=== PATIENT | male | born 1935 | race Caucasian/White ===

== ENCOUNTER → 2020-10-09 08:22 | Outpatient (CLI) | payer MEDICARE, OTHER, SELFPAY ==
[2020-10-09 19:26] LABS: Alanine Aminotransferase 25 IU/L (<50); Albumin 3.9 g/dL (3.5-5.0); Albumin Globulin Ratio 1.3 (1.0-2.8); Alkaline Phosphatase 52 U/L (38-126); Aspartate Aminotransferase 17 IU/L (17-59); Bilirubin Total 0.7 mg/dL (0.2-1.3); Blood Urea Nitrogen 16 mg/dL (9-20); Calcium 9.9 mg/dL (8.4-10.2); Carbon Dioxide 28 mmol/L (22-32); Chloride 103 mmol/L (98-107); Estimated Glomerular Filt Rate > 60.0 mL/min (>60); Globulin 2.9 g/dL (1.7-4.1); Glucose 104 mg/dL (80-110); HEMOLYSIS < 15 (0-50); Potassium 4.6 mmol/L (3.4-5.1); Sodium 137 mmol/L (137-145); Total Protein 6.8 g/dL (6.3-8.2)
[2020-10-09 19:33] LABS: Add Manual Diff / Slide Review NO; Basophils Absolute Auto 0 /uL (0-100); Basophils Percent Auto 0.5 % (0-2); Eosinophils Absolute Auto 100 /uL (0-450); Eosinophils Percent Auto 0.7 % (2-4); Hematocrit 45.8 % (41-53); Hemoglobin 15.3 g/dL (13.5-17.5); Lymphocytes Absolute Auto 2300 /uL (1100-4500); Lymphocytes Percent Auto 21.8 % (25-40); Mean Corpuscular HGB Conc 33.5 % (30-36); Mean Corpuscular Hemoglobin 31.1 PG (26-34); Mean Corpuscular Volume 92.8 fL (80-100); Monocytes Absolute Auto 900 /uL (0-900); Monocytes Percent Auto 8.8 % (3-14); Neutrophils Absolute Auto 7200 /uL (1500-7000); Neutrophils Percent Auto 68.2 % (50-75); Platelet Count 245 X10^3/uL (150-400); Red Blood Cell Count 4.93 X10^6/uL (4.5-5.9); Red Cell Distribution Width 13.5 % (11.6-14.8); White Blood Cell Count 10.5 X10^3/uL (4.5-11.0)
[2020-10-09 19:54] LABS: Prostate Specific Antigen 1.54 ng/mL (0.10-4.00)
[2020-10-16 05:34] LABS: Percent Free Testosterone 3.18 % (1.50-4.20); Testosterone Free 20.45 ng/dL (5.00-21.00); Testosterone Total 643.1 ng/dL (264.0-916.0)
== END ==
PROVIDERS: Family Provider Family Medicine; PCP Family Medicine; Visit Provider Family Medicine
DX: E29.1 Testicular hypofunction (principal); N40.0 Benign prostatic hyperplasia without lower urinary tract symptoms
CPT/HCPCS: 80053; 84153; 84402; 84403; 85025

== ENCOUNTER → 2021-01-14 08:38 | Outpatient (CLI) | payer MEDICARE, OTHER, SELFPAY ==
[2021-01-14 19:49] LABS: Testosterone 190 ng/dL (71.8-623)
[2021-01-16 10:36] LABS: PSA Free % 32.2 % (.); PSA, Total 0.9 ng/mL (0.0-4.0)
== END ==
PROVIDERS: Family Provider Family Medicine; PCP Family Medicine; Referring Provider Student in an Organized Health Care Education/Training Program; Visit Provider Student in an Organized Health Care Education/Training Program
DX: E29.1 Testicular hypofunction (principal); Z51.81 Encounter for therapeutic drug level monitoring
CPT/HCPCS: 84153; 84154; 84403

== ENCOUNTER → 2021-01-30 11:56 | Outpatient (CLI) | payer MEDICARE, OTHER, SELFPAY ==
[2021-01-30 18:43] LABS: Add Manual Diff / Slide Review NO; Basophils Absolute Auto 100 /uL (0-100); Basophils Percent Auto 0.8 % (0-2); Eosinophils Absolute Auto 0 /uL (0-450); Eosinophils Percent Auto 0.3 % (2-4); Hematocrit 44.9 % (41-53); Hemoglobin 15.2 g/dL (13.5-17.5); Lymphocytes Absolute Auto 2200 /uL (1100-4500); Lymphocytes Percent Auto 19.1 % (25-40); Mean Corpuscular HGB Conc 33.8 % (30-36); Mean Corpuscular Hemoglobin 31.4 PG (26-34); Mean Corpuscular Volume 92.7 fL (80-100); Monocytes Absolute Auto 1100 /uL (0-900); Monocytes Percent Auto 9.4 % (3-14); Neutrophils Absolute Auto 8000 /uL (1500-7000); Neutrophils Percent Auto 70.4 % (50-75); Platelet Count 251 X10^3/uL (150-400); Red Blood Cell Count 4.85 X10^6/uL (4.5-5.9); Red Cell Distribution Width 13.5 % (11.6-14.8); White Blood Cell Count 11.4 X10^3/uL (4.5-11.0)
[2021-01-30 18:53] LABS: HEMOLYSIS < 15 (0-50); Iron 114 ug/dL (49-181)
[2021-01-30 19:01] LABS: Alanine Aminotransferase 22 IU/L (<50); Albumin 4.3 g/dL (3.5-5.0); Albumin Globulin Ratio 1.5 (1.0-2.8); Alkaline Phosphatase 53 U/L (38-126); Aspartate Aminotransferase 17 IU/L (17-59); BUN Creatinine Ratio 23.3 (6-22); Bilirubin Total 0.6 mg/dL (0.2-1.3); Blood Urea Nitrogen 21 mg/dL (9-20); Carbon Dioxide 28 mmol/L (22-32); Chloride 102 mmol/L (98-107); Estimated Glomerular Filt Rate > 60.0 mL/min (>60); Globulin 2.9 g/dL (1.7-4.1); Glucose 101 mg/dL (80-110); HEMOLYSIS < 15 (0-50); Potassium 4.9 mmol/L (3.4-5.1); Sodium 138 mmol/L (137-145); Total Protein 7.2 g/dL (6.3-8.2)
[2021-01-30 19:04] LABS: Percent Iron Saturation 36 % (20-50); Total Iron Binding Capacity 316 ug/dL (261-462); Transferrin 232 mg/dL (206-381)
[2021-01-30 19:53] LABS: Vitamin B12 > 1000 pg/mL (239-931)
[2021-02-02 17:09] LABS: Arsenic 1 ug/L (2-23); Cadmium, Blood None Detected ug/L (0.0-1.2); Lead, Blood 1 ug/dL (0-4)
== END ==
PROVIDERS: Family Provider Family Medicine; PCP Family Medicine; Visit Provider Family Medicine
DX: E29.1 Testicular hypofunction (principal); N18.9 Chronic kidney disease, unspecified; G62.9 Polyneuropathy, unspecified; D64.9 Anemia, unspecified
CPT/HCPCS: 80053; 82175; 82300; 82607; 83540; 83550; 83655; 83825; 85025

== ENCOUNTER → 2021-02-06 08:05 | Outpatient (CLI) | payer MEDICARE, OTHER, SELFPAY ==
[2021-02-06 20:31] LABS: Testosterone 605 ng/dL (71.8-623)
== END ==
PROVIDERS: Student in an Organized Health Care Education/Training Program; Family Provider Family Medicine; PCP Family Medicine
DX: E29.1 Testicular hypofunction (principal)
CPT/HCPCS: 84403

== ENCOUNTER → 2021-05-15 08:07 | Outpatient (CLI) | payer MEDICARE, OTHER, SELFPAY ==
[2021-05-15 18:22] LABS: Add Manual Diff / Slide Review NO; Basophils Absolute Auto 100 /uL (0-100); Basophils Percent Auto 0.9 % (0-2); Eosinophils Absolute Auto 100 /uL (0-450); Eosinophils Percent Auto 1.1 % (2-4); Hematocrit 42.4 % (41-53); Hemoglobin 14.4 g/dL (13.5-17.5); Lymphocytes Absolute Auto 2300 /uL (1100-4500); Lymphocytes Percent Auto 25.5 % (25-40); Mean Corpuscular HGB Conc 33.8 % (30-36); Mean Corpuscular Hemoglobin 31.1 PG (26-34); Mean Corpuscular Volume 91.8 fL (80-100); Monocytes Absolute Auto 1000 /uL (0-900); Monocytes Percent Auto 11.1 % (3-14); Neutrophils Absolute Auto 5600 /uL (1500-7000); Neutrophils Percent Auto 61.4 % (50-75); Platelet Count 231 X10^3/uL (150-400); Red Blood Cell Count 4.62 X10^6/uL (4.5-5.9); Red Cell Distribution Width 14.1 % (11.6-14.8)
[2021-05-15 18:31] LABS: Alanine Aminotransferase 20 IU/L (<50); Albumin 3.9 g/dL (3.5-5.0); Albumin Globulin Ratio 1.4 (1.0-2.8); Alkaline Phosphatase 45 U/L (38-126); Aspartate Aminotransferase 16 IU/L (17-59); BUN Creatinine Ratio 19.8 (6-22); Bilirubin Total 0.6 mg/dL (0.2-1.3); Blood Urea Nitrogen 19 mg/dL (9-20); Calcium 9.3 mg/dL (8.4-10.2); Carbon Dioxide 29 mmol/L (22-32); Chloride 105 mmol/L (98-107); Estimated Glomerular Filt Rate > 60.0 mL/min (>60); Globulin 2.7 g/dL (1.7-4.1); Glucose 120 mg/dL (80-110); HEMOLYSIS < 15 (0-50); Potassium 4.8 mmol/L (3.4-5.1); Sodium 138 mmol/L (137-145); Total Protein 6.6 g/dL (6.3-8.2)
== END ==
PROVIDERS: Family Provider Family Medicine; PCP Family Medicine; Visit Provider Family Medicine
DX: J01.00 Acute maxillary sinusitis, unspecified (principal); G62.9 Polyneuropathy, unspecified; N40.0 Benign prostatic hyperplasia without lower urinary tract symptoms
CPT/HCPCS: 80053; 85025

== ENCOUNTER → 2021-08-07 08:03 | Outpatient (CLI) | payer MEDICARE, OTHER, SELFPAY ==
[2021-08-07 19:10] LABS: Alanine Aminotransferase 21 IU/L (<50); Albumin 4.2 g/dL (3.5-5.0); Albumin Globulin Ratio 1.4 (1.0-2.8); Alkaline Phosphatase 55 U/L (38-126); Aspartate Aminotransferase 16 IU/L (17-59); Bilirubin Total 0.8 mg/dL (0.2-1.3); Blood Urea Nitrogen 23 mg/dL (9-20); Calcium 9.1 mg/dL (8.4-10.2); Carbon Dioxide 30 mmol/L (22-32); Chloride 102 mmol/L (98-107); Estimated Glomerular Filt Rate > 60 mL/min (>60); Globulin 3.1 g/dL (1.7-4.1); Glucose 102 mg/dL (80-110); HEMOLYSIS < 15 (0-50); Potassium 4.4 mmol/L (3.4-5.1); Sodium 139 mmol/L (137-145); Total Protein 7.3 g/dL (6.3-8.2)
[2021-08-07 20:20] LABS: Hemoglobin A1C% w Est Avg Glu 5.9 % (4.0-6.0)
[2021-08-15 11:24] LABS: Percent Free Testosterone 2.58 % (1.50-4.20); Testosterone Free 17.15 ng/dL (5.00-21.00); Testosterone Total 664.9 ng/dL (264.0-916.0)
== END ==
PROVIDERS: Family Provider Family Medicine; PCP Family Medicine; Visit Provider Family Medicine
DX: R73.03 Prediabetes (principal); Z79.890 Hormone replacement therapy
CPT/HCPCS: 80053; 83036; 84402; 84403

== ENCOUNTER → 2021-08-26 11:43 | Outpatient (CLI) | payer MEDICARE, OTHER, SELFPAY ==
[2021-08-26 19:55] LABS: Prostate Specific Antigen 0.878 ng/mL (0.10-4.00)
== END ==
PROVIDERS: Family Provider Family Medicine; PCP Family Medicine; Visit Provider Urology
DX: N13.8 Other obstructive and reflux uropathy (principal); N40.1 Benign prostatic hyperplasia with lower urinary tract symptoms
CPT/HCPCS: 84153

== ENCOUNTER → 2021-11-09 14:24 | Outpatient (CLI) | payer MEDICARE, OTHER, SELFPAY | PROVIDERS: Family Provider Family Medicine; PCP Family Medicine; Visit Provider Urology | DX: N39.0 Urinary tract infection, site not specified (principal) | CPT/HCPCS: 87086 ==

== ENCOUNTER → 2021-12-10 09:27 | Outpatient (CLI) | payer MEDICARE, OTHER, SELFPAY ==
[2021-12-10 19:52] LABS: Add Manual Diff / Slide Review NO; Basophils Absolute Auto 100 /uL (0-100); Basophils Percent Auto 0.9 % (0-2); Eosinophils Absolute Auto 100 /uL (0-450); Eosinophils Percent Auto 0.7 % (2-4); Hematocrit 42.6 % (41-53); Hemoglobin 14.5 g/dL (13.5-17.5); Lymphocytes Absolute Auto 1800 /uL (1100-4500); Lymphocytes Percent Auto 21.3 % (25-40); Mean Corpuscular HGB Conc 34.1 % (30-36); Mean Corpuscular Volume 90.7 fL (80-100); Monocytes Absolute Auto 800 /uL (0-900); Neutrophils Absolute Auto 5600 /uL (1500-7000); Neutrophils Percent Auto 67.1 % (50-75); Platelet Count 232 X10^3/uL (150-400); Red Blood Cell Count 4.69 X10^6/uL (4.5-5.9); Red Cell Distribution Width 13.4 % (11.6-14.8); White Blood Cell Count 8.3 X10^3/uL (4.5-11.0)
[2021-12-10 20:14] LABS: Prostate Specific Antigen Scrn 2.03 ng/mL (0.1-4.0)
[2021-12-22 09:36] LABS: Percent Free Testosterone 2.11 % (1.50-4.20); Testosterone Free 14.24 ng/dL (5.00-21.00); Testosterone Total 674.7 ng/dL (264.0-916.0)
== END ==
PROVIDERS: Family Provider Family Medicine; PCP Family Medicine; Visit Provider Family Medicine
DX: R73.03 Prediabetes (principal); Z12.5 Encounter for screening for malignant neoplasm of prostate; N13.8 Other obstructive and reflux uropathy; N40.1 Benign prostatic hyperplasia with lower urinary tract symptoms; Z79.890 Hormone replacement therapy; Z87.438 Personal history of other diseases of male genital organs
CPT/HCPCS: 84402; 84403; 85025; G0103

== ENCOUNTER → 2022-04-15 12:59 | Outpatient (CLI) | payer MEDICARE, OTHER, SELFPAY ==
[2022-04-15 19:18] LABS: Hemoglobin 14.6 g/dL (13.5-17.5); Mean Corpuscular HGB Conc 33.9 % (30-36); Mean Corpuscular Hemoglobin 30.8 PG (26-34); Mean Corpuscular Volume 90.8 fL (80-100); Platelet Count 246 X10^3/uL (150-400); Red Blood Cell Count 4.73 X10^6/uL (4.5-5.9); Red Cell Distribution Width 14.3 % (11.6-14.8); White Blood Cell Count 10.5 X10^3/uL (4.5-11.0)
[2022-04-15 19:27] LABS: Prostate Specific Antigen Scrn 1.35 ng/mL (0.1-4.0)
[2022-04-15 19:32] LABS: Neutrophils Absolute Manual 6930 /uL (3000-5900); Total Cells Counted 100
[2022-04-15 19:34] LABS: RBC Morphology Normal Morphology
[2022-04-27 00:03] LABS: Percent Free Testosterone 1.54 % (1.50-4.20); Testosterone Free 14.03 ng/dL (5.00-21.00); Testosterone Total 910.9 ng/dL (264.0-916.0)
== END ==
PROVIDERS: Family Provider Family Medicine; PCP Family Medicine; Visit Provider Family Medicine
DX: R73.03 Prediabetes (principal); Z12.5 Encounter for screening for malignant neoplasm of prostate; Z79.890 Hormone replacement therapy
CPT/HCPCS: 84402; 84403; 85025; G0103

== ENCOUNTER → 2022-04-21 11:51 | Outpatient (CLI) | payer MEDICARE, OTHER, SELFPAY ==
[2022-04-21 18:39] LABS: Add Manual Diff / Slide Review NO; Basophils Absolute Auto 100 /uL (0-100); Basophils Percent Auto 0.6 % (0-2); Eosinophils Absolute Auto 0 /uL (0-450); Eosinophils Percent Auto 0.5 % (2-4); Hematocrit 40.9 % (41-53); Hemoglobin 13.7 g/dL (13.5-17.5); Lymphocytes Absolute Auto 2100 /uL (1100-4500); Lymphocytes Percent Auto 23.2 % (25-40); Mean Corpuscular HGB Conc 33.5 % (30-36); Mean Corpuscular Hemoglobin 30.6 PG (26-34); Mean Corpuscular Volume 91.3 fL (80-100); Monocytes Absolute Auto 900 /uL (0-900); Neutrophils Absolute Auto 6000 /uL (1500-7000); Neutrophils Percent Auto 65.7 % (50-75); Platelet Count 234 X10^3/uL (150-400); Red Blood Cell Count 4.48 X10^6/uL (4.5-5.9); Red Cell Distribution Width 14.4 % (11.6-14.8); White Blood Cell Count 9.2 X10^3/uL (4.5-11.0)
== END ==
PROVIDERS: Family Provider Family Medicine; PCP Family Medicine; Visit Provider Family Medicine
DX: D72.820 Lymphocytosis (symptomatic) (principal)
CPT/HCPCS: 85025; 88184; 88185; 88189

== ENCOUNTER → 2022-05-10 13:02 | Outpatient (CLI) | payer MEDICARE, OTHER, SELFPAY ==
[2022-05-12 16:19] LABS: Albumin 3.8 g/dL (2.9-4.4); Alpha-1-Globulin 0.3 g/dL (0.0-0.4); Alpha-2-Globulin 0.9 g/dL (0.4-1.0); Gamma Globulin 0.9 g/dL (0.4-1.8); Globulin Total 3.1 g/dL (2.2-3.9); Protein, Total 6.9 g/dL (6.0-8.5)
[2022-05-15 16:29] LABS: ANA Screen, IFA Negative (.)
== END ==
PROVIDERS: Family Provider Family Medicine; PCP Family Medicine; Visit Provider Family Medicine
DX: G60.9 Hereditary and idiopathic neuropathy, unspecified (principal); R27.0 Ataxia, unspecified; D72.820 Lymphocytosis (symptomatic)
CPT/HCPCS: 84155; 84165; 86038

== ENCOUNTER → 2022-10-11 09:19 | Outpatient (CLI) | payer MEDICARE, OTHER, SELFPAY ==
[2022-10-11 21:35] LABS: Hematocrit 40.6 % (41-53); Hemoglobin 13.9 g/dL (13.5-17.5); Mean Corpuscular HGB Conc 34.3 % (30-36); Mean Corpuscular Hemoglobin 31.3 PG (26-34); Mean Corpuscular Volume 91.1 fL (80-100); Platelet Count 226 X10^3/uL (150-400); Red Blood Cell Count 4.46 X10^6/uL (4.5-5.9); Red Cell Distribution Width 13.8 % (11.6-14.8); White Blood Cell Count 8.8 X10^3/uL (4.5-11.0)
[2022-10-11 21:58] LABS: Cholesterol 151 mg/dL (140-199); HDL Cholesterol 49 mg/dL (40-60); LDL Cholesterol Calculated 91 mg/dL (<100); Triglycerides 57 mg/dL (35-150)
[2022-10-11 22:12] LABS: Neutrophils Absolute Manual 5280 /uL (3000-5900); RBC Morphology Normal Morphology; Smudge Cells 1+; Total Cells Counted 100
[2022-10-11 22:29] LABS: Prostate Specific Antigen Scrn 2.21 ng/mL (0.1-4.0)
[2022-10-14 17:24] LABS: Albumin 3.9 g/dL (2.9-4.4); Alpha-1-Globulin 0.2 g/dL (0.0-0.4); Alpha-2-Globulin 0.8 g/dL (0.4-1.0); Globulin Total 2.9 g/dL (2.2-3.9); Protein, Total 6.8 g/dL (6.0-8.5)
[2022-10-18 11:28] LABS: Percent Free Testosterone 2.25 % (1.50-4.20); Testosterone Total 430.9 ng/dL (264.0-916.0)
== END ==
PROVIDERS: PCP Family Medicine; Visit Provider Family Medicine
DX: Z12.5 Encounter for screening for malignant neoplasm of prostate (principal); Z13.220 Encounter for screening for lipoid disorders; D47.9 Neoplasm of uncertain behavior of lymphoid, hematopoietic and related tissue, unspecified; D64.9 Anemia, unspecified; E29.1 Testicular hypofunction; G60.9 Hereditary and idiopathic neuropathy, unspecified; N32.81 Overactive bladder; Z87.438 Personal history of other diseases of male genital organs; Z79.890 Hormone replacement therapy
CPT/HCPCS: 80061; 84155; 84165; 84402; 84403; 85025; G0103

== ENCOUNTER → 2023-01-13 13:02 | Outpatient (CLI) | payer MEDICARE, OTHER, SELFPAY ==
[2023-01-13 21:30] LABS: Folate > 20.0 ng/mL (2.76-20.0); Vitamin B12 > 1000 pg/mL (239-931)
[2023-01-17 15:38] LABS: Albumin 3.8 g/dL (2.9-4.4); Alpha-1-Globulin 0.2 g/dL (0.0-0.4); Alpha-2-Globulin 0.9 g/dL (0.4-1.0); Protein, Total 6.8 g/dL (6.0-8.5)
[2023-01-19 16:50] LABS: ANA Screen, IFA Negative (.)
== END ==
PROVIDERS: PCP Family Medicine; Visit Provider Family Medicine
DX: G60.9 Hereditary and idiopathic neuropathy, unspecified (principal)
CPT/HCPCS: 82607; 82746; 84155; 84165; 86038

== ENCOUNTER → 2023-02-10 09:36 | Outpatient (CLI) | payer MEDICARE, OTHER, SELFPAY ==
[2023-02-14 13:25] LABS: Fecal Immunochemical Test Negative (Negative)
== END ==
PROVIDERS: PCP Family Medicine; Visit Provider Family Medicine
DX: D47.9 Neoplasm of uncertain behavior of lymphoid, hematopoietic and related tissue, unspecified (principal); G60.9 Hereditary and idiopathic neuropathy, unspecified; D64.9 Anemia, unspecified; R27.0 Ataxia, unspecified
CPT/HCPCS: 82274

== ENCOUNTER → 2023-02-17 08:52 | Outpatient (CLI) | payer MEDICARE, OTHER, SELFPAY ==
[2023-02-17 20:34] LABS: Reticulocyte Count, Percent 1.3 % (0.9-2.6)
[2023-02-17 20:39] LABS: Add Manual Diff / Slide Review NO; Basophils Absolute Auto 100 /uL (0-100); Basophils Percent Auto 0.9 % (0-2); Eosinophils Absolute Auto 0 /uL (0-450); Eosinophils Percent Auto 0.6 % (2-4); Hematocrit 41.7 % (41-53); Hemoglobin 14.2 g/dL (13.5-17.5); Lymphocytes Absolute Auto 2000 /uL (1100-4500); Lymphocytes Percent Auto 23.7 % (25-40); Mean Corpuscular Volume 91.4 fL (80-100); Monocytes Absolute Auto 900 /uL (0-900); Monocytes Percent Auto 10.3 % (3-14); Neutrophils Absolute Auto 5600 /uL (1500-7000); Neutrophils Percent Auto 64.5 % (50-75); Platelet Count 267 X10^3/uL (150-400); Red Blood Cell Count 4.57 X10^6/uL (4.5-5.9); Red Cell Distribution Width 13.8 % (11.6-14.8); White Blood Cell Count 8.6 X10^3/uL (4.5-11.0)
[2023-02-17 20:54] LABS: HEMOLYSIS < 15 (0-50); Iron 96 ug/dL (49-181)
[2023-02-17 20:57] LABS: BUN Creatinine Ratio 27.3 (6-22); Blood Urea Nitrogen 21 mg/dL (9-20); Calcium 9.8 mg/dL (8.4-10.2); Carbon Dioxide 28 mmol/L (22-32); Chloride 99 mmol/L (98-107); Estimated Glomerular Filt Rate > 60 mL/min (>60); Glucose 106 mg/dL (80-110); HEMOLYSIS < 15 (0-50); Potassium 4.3 mmol/L (3.4-5.1); Sodium 134 mmol/L (137-145)
[2023-02-17 21:04] LABS: Percent Iron Saturation 31 % (20-50); Total Iron Binding Capacity 312 ug/dL (261-462); Transferrin 272 mg/dL (206-381)
[2023-02-17 21:26] LABS: TSH w/ Reflex to FT4 0.51 uIU/mL (0.47-4.68)
[2023-02-17 22:03] LABS: Folate > 20.0 ng/mL (2.76-20.0); Vitamin B12 > 1000 pg/mL (239-931)
[2023-03-04 07:20] LABS: Percent Free Testosterone 1.52 % (1.50-4.20); Testosterone Free 3.02 ng/dL (5.00-21.00); Testosterone Total 198.7 ng/dL (264.0-916.0)
== END ==
PROVIDERS: PCP Family Medicine; Visit Provider Family Medicine
DX: D64.9 Anemia, unspecified (principal); D47.9 Neoplasm of uncertain behavior of lymphoid, hematopoietic and related tissue, unspecified; G60.9 Hereditary and idiopathic neuropathy, unspecified; R27.0 Ataxia, unspecified; Z79.890 Hormone replacement therapy; N40.0 Benign prostatic hyperplasia without lower urinary tract symptoms; E29.1 Testicular hypofunction
CPT/HCPCS: 80048; 82607; 82746; 83540; 83550; 84402; 84403; 84443; 85025; 85045

== ENCOUNTER → 2023-05-02 11:22 | Outpatient (CLI) | payer MEDICARE, OTHER, SELFPAY ==
[2023-05-02 19:42] LABS: Add Manual Diff / Slide Review NO; Basophils Absolute Auto 100 /uL (0-100); Basophils Percent Auto 0.6 % (0-2); Eosinophils Absolute Auto 100 /uL (0-450); Eosinophils Percent Auto 0.5 % (2-4); Hematocrit 45.2 % (41-53); Hemoglobin 15.3 g/dL (13.5-17.5); Lymphocytes Absolute Auto 1900 /uL (1100-4500); Lymphocytes Percent Auto 18.5 % (25-40); Mean Corpuscular HGB Conc 33.7 % (30-36); Mean Corpuscular Hemoglobin 31.3 PG (26-34); Mean Corpuscular Volume 92.8 fL (80-100); Monocytes Absolute Auto 1100 /uL (0-900); Monocytes Percent Auto 10.3 % (3-14); Neutrophils Absolute Auto 7300 /uL (1500-7000); Neutrophils Percent Auto 70.1 % (50-75); Platelet Count 248 X10^3/uL (150-400); Red Blood Cell Count 4.87 X10^6/uL (4.5-5.9); Red Cell Distribution Width 14.6 % (11.6-14.8); White Blood Cell Count 10.4 X10^3/uL (4.5-11.0)
[2023-05-02 20:15] LABS: Prostate Specific Antigen Scrn 0.582 ng/mL (0.1-4.0)
[2023-05-12 00:40] LABS: Percent Free Testosterone 4.49 % (1.50-4.20); Testosterone Free 59.08 ng/dL (5.00-21.00); Testosterone Total 1315.8 ng/dL (264.0-916.0)
== END ==
PROVIDERS: PCP Family Medicine; Visit Provider Family Medicine
DX: Z12.5 Encounter for screening for malignant neoplasm of prostate (principal); Z79.890 Hormone replacement therapy
CPT/HCPCS: 84402; 84403; 85025; G0103

== ENCOUNTER 2023-07-04 14:13 | Emergency (ER) | payer MEDICARE, OTHER, SELFPAY ==
[2023-07-04 14:16] VITALS: BP 144/82; PULSE 78; RESP 16; TEMP 36.8; O2SAT 99; BMI 27.6
--- NOTE | 2023-07-04 14:29 | DI.US.S_ITS ---
PROCEDURE: US PERIPH VENOUS LOW EXTREM RT INDICATIONS: PAIN, EDEMA; CALF LUMP TECHNIQUE: Real-time imaging, as well as color and pulse Doppler interrogation, were performed of the lower extremity deep veins from the inguinal ligament to the popliteal fossa, with documentation of the visualized calf veins. COMPARISON: None. FINDINGS: The common femoral, femoral, popliteal, and the visualized calf veins are normally compressible, and free of intraluminal thrombus. Color and pulse Doppler demonstrate normal phasic intraluminal flow. There is normal augmentation response to distal compression maneuver. Extensive superficial venous thrombosis can be seen within the greater saphenous vein, with thrombus seen from superior to the knee to inferior to the knee, approximately 12 in from the common femoral vein. A Rivers's cyst is seen that measures 5.3 x 0.9 x 2.2 cm. IMPRESSION: No findings of lower extremity deep venous thrombosis. Superficial venous thrombosis can be seen within the greater saphenous vein. Dictated by: Rob Alexander M.D. on 07/04/2023 at 14:14 Approved by: Rob Alexander M.D. on 07/04/2023 at 14:15
--- NOTE | 2023-07-04 16:55 | PC.NURSE ---
Pt c/o right lower extremity swelling and pain. pt states this started this morning and was instructed by walk in clinic to be evaluted by ER, pt states pain is worse when ambulating.
[2023-07-04] MEDS: APIXABAN 5 MG TABLET 10 MG PO (17:13)
--- NOTE | 2023-07-04 17:13 | ED_ITS ---
HPI - Extremity Problem <Talat Douglass PA-C - Last Filed: 07/04/23 17:20> General Chief complaint: Extremity Problem,Nontraumatic Stated complaint: per pt blood clot r leg Time Seen by Provider: 07/04/23 16:58 Source: patient Mode of arrival: Family Vehicle History of Present Illness HPI Narrative: 87-year-old male with past medical history BPH, varicose veins, prostatitis, overactive bladder, B-cell lymphoproliferative disorder presents to the ED with 2 days of right lower leg pain. Patient states that he fell asleep sitting on a chair and slept for several hours without moving. Patient was seen at a walk-in clinic and sent to the ED for an ultrasound of the leg. Patient denies chest pain, shortness of breath, numbness, tingling, weakness. Patient is able to bear weight and walk normally. Related Data Home Medications Medication Instructions Recorded Confirmed ascorbic acid (vitamin C) 500 mg 500 mg PO DAILY 01/30/21 06/22/23 tablet cyanocobalamin (vitamin B-12) 5,000 mcg PO DAILY 01/30/21 06/22/23 5,000 mcg capsule zinc acetate 50 mg (zinc) capsule 50 mg PO Q OTHER DAY 01/30/21 06/22/23 (Galzin) cholecalciferol (vitamin D3) 125 125 mcg PO DAILY 05/19/21 06/22/23 mcg (5,000 unit) capsule Magnesium 240 mg PO DAILY 06/22/23 06/22/23 Previous Rx's Medication Instructions Recorded vibegron 75 mg tablet 75 mg PO DAILY #90 tabs 09/30/22 betamethasone valerate 0.1 % lotion 1 applic topical DAILY #60 mL 01/24/23 safety needles 18 gauge x 1 #50 ea 03/18/23 syringe with needle 3 mL 23 x 1 #100 ea 04/15/23 (BrightNest Luer Lock Syringe with needle) testosterone cypionate 200 mg/mL 100 mg (0.5 mL) IM Q2W #10 mL 06/29/23 intramuscular oil apixaban 5 mg (74 tabs) tablets in See Rx Instructions PO .COMPLEX 07/04/23 a dose pack (Eliquis DVT-PE Treat #74 ea 30D Start) Allergies Allergy/AdvReac Type Severity Reaction Status Date / Time Latex, Natural Rubber AdvReac Unknown Verified 06/22/23 12:31 Review of Systems <Talat Douglass PA-C - Last Filed: 07/04/23 17:20> Constitutional Constitutional: Denies chills, Denies fatigue, Denies fever(s), Denies frequent falls, Denies lethargy and Denies weakness Eyes Eyes: Denies change in vision, Denies eye discharge, Denies irritation and Denies loss of vision ENT Ears, Nose, Mouth, and Throat: Denies change in voice, Denies dizziness, Denies neck pain, Denies sore throat and Denies throat swelling Cardiovascular Cardiovascular: Denies chest pain, Denies irregular heart rhythm, Denies lightheadedness, Denies palpitations, Denies dyspnea, Denies dyspnea on exertion and Denies orthopnea Respiratory Respiratory: Denies cough, Denies dyspnea, Denies dyspnea on exertion and Denies wheezing Gastrointestinal Gastrointestinal: Denies abdominal pain, Denies change in bowel habits, Denies diarrhea, Denies nausea and Denies vomiting Musculoskeletal Musculoskeletal: Denies neck pain and Denies numbness Comments: Right lower leg pain. Integumentary/Breasts Skin/Breast: Denies pruritus, Denies erythema, Denies rash and Denies wounds Neurologic Neurologic: Denies behavioral changes, Denies confusion, Denies dizziness, Denies frequent falls, Denies loss of vision, Denies numbness and Denies weakness Psychiatric Psychiatric: Denies anxiety, Denies behavioral changes, Denies confusion, Denies depression, Denies homicidal ideation and Denies suicidal ideation Endocrine Endocrine: Denies fatigue, Denies flushing and Denies palpitations Hematologic/Lymphatic Hematologic/Lymphatic: Denies easy bruising Allergic/Immunologic Allergic/Immunologic: Denies urticaria, Denies throat swelling and Denies wheezing Patient History <Talat Douglass PA-C - Last Filed: 07/04/23 17:20> Medical History Overactive bladder Nocturia more than twice per night BPH (benign prostatic hyperplasia) Testicular hypofunction Surgical History History of transurethral resection of prostate Social History Smoking Status: Former smoker Smoking Status: Former smoker Exam <Talat Douglass PA-C - Last Filed: 07/04/23 17:20> Narrative Exam Narrative: Const General:?cooperative, healthy appearing and comfortable [facility] Head:?normal to inspection Ears:?hearing grossly normal bilaterally Nose:?external nose normal Face and sinus:?normal facial exam and sinuses nontender Mouth:?oral mucosae normal Throat:?posterior oropharynx normal Eyes General:?appearance normal, both eyes and all related structures Neck Neck:?normal visual inspection and no lymphadenopathy noted Resp Effort & Inspection:?normal respiratory effort Auscultation:?clear to auscultation bilaterally Cardio Rate:?regular rate Rhythm:?regular rhythm Musculoskeletal Prominent varicose veins in right lower leg, with 1 of the veins hard to palpation. Full range of motion. Neurovascularly intact. Compartments are soft. Patient able to bear weight and walk normally. Neuro General:?patient alert, patient awake and patient oriented x3 Initial Vital Signs Initial Vital Signs: Vital Signs Temperature 98.2 F 07/04/23 14:16 Pulse Rate 78 07/04/23 14:16 Respiratory Rate 16 07/04/23 14:16 Blood Pressure 144/82 H 07/04/23 14:16 Pulse Oximetry 99 07/04/23 14:16 Oxygen Delivery Method Room Air 07/04/23 14:16 <Nikki Arzate MD - Last Filed: 07/04/23 17:40> Initial Vital Signs Initial Vital Signs: Vital Signs Temperature 98.2 F 07/04/23 14:16 Pulse Rate 78 07/04/23 14:16 Respiratory Rate 16 07/04/23 14:16 Blood Pressure 144/82 H 07/04/23 14:16 Pulse Oximetry 99 07/04/23 14:16 Oxygen Delivery Method Room Air 07/04/23 14:16 Course <Talat Douglass PA-C - Last Filed: 07/04/23 17:20> Orders Ordered: ED Orders 07/04/23 14:29 US periph venous low extrem rt Stat Discontinued Medications Apixaban (Apixaban 5 Mg Tablet) 10 mg PO NOW ONE Stop: 07/04/23 17:09 Last Admin: 07/04/23 17:13 Dose: 10 mg Documented By: ANNABEL Vital Signs Vital signs: Vital Signs - 8 hr 07/04/23 14:16 07/04/23 17:16 Temperature 98.2 F Pulse Rate 78 79 Respiratory Rate 16 16 Blood Pressure 144/82 H 166/92 H Pulse Oximetry 99 100 Oxygen Delivery Method Room Air Room Air <Nikki Arzate MD - Last Filed: 07/04/23 17:40> Orders Ordered: ED Orders 07/04/23 14:29 US periph venous low extrem rt Stat Discontinued Medications Apixaban (Apixaban 5 Mg Tablet) 10 mg PO NOW ONE Stop: 07/04/23 17:09 Last Admin: 07/04/23 17:13 Dose: 10 mg Documented By: ANNABEL Vital Signs Vital signs: Vital Signs - 8 hr 07/04/23 14:16 07/04/23 17:16 Temperature 98.2 F Pulse Rate 78 79 Respiratory Rate 16 16 Blood Pressure 144/82 H 166/92 H Pulse Oximetry 99 100 Oxygen Delivery Method Room Air Room Air MDM - Extremity (Nontraumatic) <Talat Douglass PA-C - Last Filed: 07/04/23 17:20> MDM Narrative Medical decision making narrative: 87-year-old male with past medical history BPH, varicose veins, prostatitis, overactive bladder, B-cell lymphoproliferative disorder presents to the ED with 2 days of right lower leg pain. Concern for DVT versus varicose veins versus th rombophlebitis versus superficial vein thrombosis versus musculoskeletal sprain/strain versus other. Ultrasound was obtained which shows a extensive superficial venous thrombosis within the greater saphenous vein with thrombus seen from superior to the knee to inferior to the knee, approximately 12 in from the common femoral vein. A Rivers cyst is also seen that measures 5.3 x 0.9 x 2.2 cm. Findings discussed with patient. Patient started on Eliquis. First dose of Eliquis given in the ED. fall precautions discussed with patient. Recommend follow-up with PCP as soon as possible. ED return precautions discussed with patient. Patient verbalized understanding. Medical records reviewed: Yes Discharge Plan Departure Patient Disposition: Home Clinical Impression: Superficial vein thrombosis Instructions: Deep Vein Thrombosis Activity Restrictions/Additional Instructions: You were evaluated in the ED today for right leg pain. Your ultrasound shows a superficial venous thrombosis which is a blood clot within the greater saphenous vein. You are being started on anticoagulation, which is blood thinners. You will continue to take the blood thinners for the next 45 days. Please follow-up with your PCP as soon as possible. Return to the ED if you have worsening symptoms, chest pain, shortness of breath. Prescriptions: [place] DVT-PE Treat 30D Start 5 mg (74 tabs) tablets,dose pack See Rx Instructions .ROUTE .COMPLEX Qty: 74 0RF Rx Instructions: orally per package directions No Action vibegron 75 mg tablet 75 mg PO DAILY Qty: 90 3RF betamethasone valerate 0.1 % lotion 1 applic topical DAILY Qty: 60 3RF (DME) safety needles 18 gauge x 1 needle See Rx Instructions .Route Qty: 50 1RF Rx Instructions: to draw up testosterone only, patient to switch needles for injection (DME) BrightNest Luer Lock Syr-needle 3 mL 23 x 1 syringe See Rx Instructions .Route Qty: 100 4RF Rx Instructions: To inject Testosterone every week testosterone cypionate 200 mg/mL oil 100 mg IM Q2W Qty: 10 0RF cyanocobalamin (vitamin B-12) 5,000 mcg capsule 5,000 mcg PO DAILY Galzin 50 mg (zinc) capsule 50 mg PO Q OTHER DAY ascorbic acid (vitamin C) 500 mg tablet 500 mg PO DAILY Magnesium 240 mg PO DAILY Patient Comments: Patient reports taking 240mg daily triamcinolone acetonide [Kenalog] 40 mg/mL suspension 40 mg intrabursal ONCE Qty: 1 0RF cholecalciferol (vitamin D3) 125 mcg (5,000 unit) capsule 125 mcg PO DAILY Referrals: Fernando Butcher MD [Primary Care Provider] - Stand Alone Forms: Patient Portal/API ED Sign-out <Nikki Arzate MD - Last Filed: 07/04/23 17:40> Cosign ED Attending Grace Attestation: I was immediately available in the department for consultation throughout this patient's visit. Nikki Arzate MD
[2023-07-04 17:16] VITALS: BP 166/92; PULSE 79; RESP 16; O2SAT 100
== END 2023-07-04 17:17 | disposition home or self-care (01) ==
PROVIDERS: Emergency Provider Student in an Organized Health Care Education/Training Program; PCP Family Medicine
DX: I82.811 Embolism and thrombosis of superficial veins of right lower extremity (principal); Z79.01 Long term (current) use of anticoagulants
CPT/HCPCS: 93971; 99283

== ENCOUNTER → 2023-07-05 11:20 | Outpatient (CLI) | payer MEDICARE, OTHER, SELFPAY ==
[2023-07-05 20:25] LABS: Hematocrit 45.7 % (41-53); Hemoglobin 15.4 g/dL (13.5-17.5); Mean Corpuscular HGB Conc 33.7 % (30-36); Mean Corpuscular Hemoglobin 31.3 PG (26-34); Mean Corpuscular Volume 92.6 fL (80-100); Platelet Count 243 X10^3/uL (150-400); Red Blood Cell Count 4.93 X10^6/uL (4.5-5.9); Red Cell Distribution Width 14.5 % (11.6-14.8); White Blood Cell Count 13.1 X10^3/uL (4.5-11.0)
[2023-07-05 20:51] LABS: Add Manual Diff / Slide Review YES
[2023-07-05 21:15] LABS: Neutrophils Absolute Manual 10349 /uL (3000-5900); RBC Morphology Normal Morphology; Total Cells Counted 100
[2023-07-05 21:21] LABS: Vitamin B12 787 pg/mL (239-931)
== END ==
PROVIDERS: PCP Family Medicine; Visit Provider Family Medicine
DX: D47.9 Neoplasm of uncertain behavior of lymphoid, hematopoietic and related tissue, unspecified (principal); N40.0 Benign prostatic hyperplasia without lower urinary tract symptoms; E67.8 Other specified hyperalimentation; Z79.890 Hormone replacement therapy
CPT/HCPCS: 82607; 84402; 84403; 85007; 85025

== ENCOUNTER → 2023-09-19 11:52 | Outpatient (CLI) | payer MEDICARE, OTHER, SELFPAY ==
[2023-09-19 20:17] LABS: BUN Creatinine Ratio 20.2 (6-22); Blood Urea Nitrogen 19 mg/dL (9-20); Calcium 9.1 mg/dL (8.4-10.2); Carbon Dioxide 24 mmol/L (22-32); Chloride 103 mmol/L (98-107); Estimated Glomerular Filt Rate > 60 mL/min (>60); Glucose 102 mg/dL (80-110); HEMOLYSIS < 15 (0-50); Potassium 4.7 mmol/L (3.4-5.1); Sodium 135 mmol/L (137-145)
[2023-09-19 20:31] LABS: Hematocrit 44.1 % (41-53); Hemoglobin 14.8 g/dL (13.5-17.5); Mean Corpuscular HGB Conc 33.6 % (30-36); Mean Corpuscular Hemoglobin 31.3 PG (26-34); Platelet Count 267 X10^3/uL (150-400); Red Blood Cell Count 4.74 X10^6/uL (4.5-5.9); Red Cell Distribution Width 14.3 % (11.6-14.8); White Blood Cell Count 11.6 X10^3/uL (4.5-11.0)
[2023-09-19 20:43] LABS: Add Manual Diff / Slide Review YES
[2023-09-19 20:48] LABS: Prostate Specific Antigen Scrn 1.63 ng/mL (0.1-4.0)
[2023-09-19 21:07] LABS: Vitamin B12 706 pg/mL (239-931)
[2023-09-19 21:10] LABS: Neutrophils Absolute Manual 9164 /uL (3000-5900); Total Cells Counted 100
[2023-09-19 21:11] LABS: RBC Morphology Normal Morphology
== END ==
PROVIDERS: PCP Family Medicine; Visit Provider Family Medicine
DX: E67.8 Other specified hyperalimentation (principal); Z12.5 Encounter for screening for malignant neoplasm of prostate; D47.9 Neoplasm of uncertain behavior of lymphoid, hematopoietic and related tissue, unspecified; G60.9 Hereditary and idiopathic neuropathy, unspecified; Z98.890 Other specified postprocedural states; Z90.79 Acquired absence of other genital organ(s); Z79.890 Hormone replacement therapy; N40.1 Benign prostatic hyperplasia with lower urinary tract symptoms; N13.8 Other obstructive and reflux uropathy; E29.1 Testicular hypofunction
CPT/HCPCS: 80048; 82607; 84402; 84403; 85007; 85025; G0103

== ENCOUNTER → 2024-01-25 10:55 | Outpatient (CLI) | payer MEDICARE, OTHER, SELFPAY ==
[2024-01-25 20:10] LABS: Add Manual Diff / Slide Review NO; Basophils Absolute Auto 0 /uL (0-100); Basophils Percent Auto 0.3 % (0-2); Eosinophils Absolute Auto 0 /uL (0-450); Eosinophils Percent Auto 0.2 % (2-4); Hematocrit 45.4 % (41-53); Hemoglobin 15.3 g/dL (13.5-17.5); Lymphocytes Absolute Auto 2200 /uL (1100-4500); Lymphocytes Percent Auto 18.5 % (25-40); Mean Corpuscular HGB Conc 33.8 % (30-36); Mean Corpuscular Hemoglobin 31.1 PG (26-34); Mean Corpuscular Volume 91.9 fL (80-100); Monocytes Absolute Auto 1100 /uL (0-900); Monocytes Percent Auto 8.8 % (3-14); Neutrophils Absolute Auto 8700 /uL (1500-7000); Neutrophils Percent Auto 72.2 % (50-75); Platelet Count 242 X10^3/uL (150-400); Red Blood Cell Count 4.94 X10^6/uL (4.5-5.9); Red Cell Distribution Width 14.2 % (11.6-14.8)
[2024-01-25 20:20] LABS: BUN Creatinine Ratio 19.6 (6-22); Blood Urea Nitrogen 18 mg/dL (9-20); Calcium 9.6 mg/dL (8.4-10.2); Carbon Dioxide 29 mmol/L (22-32); Chloride 102 mmol/L (98-107); Estimated Glomerular Filt Rate > 60 mL/min (>60); Glucose 109 mg/dL (80-110); HEMOLYSIS 19 (0-50); Potassium 4.5 mmol/L (3.4-5.1); Sodium 137 mmol/L (137-145)
== END ==
PROVIDERS: PCP Family Medicine; Visit Provider Family Medicine
DX: Z12.5 Encounter for screening for malignant neoplasm of prostate (principal); D47.9 Neoplasm of uncertain behavior of lymphoid, hematopoietic and related tissue, unspecified; G60.9 Hereditary and idiopathic neuropathy, unspecified; Z79.890 Hormone replacement therapy
CPT/HCPCS: 80048; 84402; 84403; 85025; G0103

== ENCOUNTER → 2024-03-27 11:05 | Outpatient (CLI) | payer MEDICARE, OTHER, SELFPAY ==
[2024-03-27 19:28] LABS: Hematocrit 42.7 % (41-53); Hemoglobin 14.3 g/dL (13.5-17.5); Mean Corpuscular HGB Conc 33.4 % (30-36); Mean Corpuscular Hemoglobin 31.2 PG (26-34); Mean Corpuscular Volume 93.2 fL (80-100); Platelet Count 244 X10^3/uL (150-400); Red Blood Cell Count 4.58 X10^6/uL (4.5-5.9)
[2024-03-27 19:55] LABS: Neutrophils Absolute Manual 6800 /uL (3000-5900); RBC Morphology Normal Morphology; Total Cells Counted 100
[2024-04-08 15:06] LABS: Testosterone Free 37.41 ng/dL (5.00-21.00); Testosterone Total 1438.9 ng/dL (264.0-916.0)
== END ==
PROVIDERS: PCP Family Medicine; Visit Provider Family Medicine
DX: D72.828 Other elevated white blood cell count (principal); E29.1 Testicular hypofunction; Z79.890 Hormone replacement therapy
CPT/HCPCS: 84402; 84403; 85025

== ENCOUNTER → 2024-06-21 11:05 | Outpatient (CLI) | payer MEDICARE, OTHER, SELFPAY ==
[2024-06-23 08:36] LABS: Varicella IgG Antibody Reactive (Non Reactive)
== END ==
PROVIDERS: PCP Family Medicine; Visit Provider Family Medicine
DX: E29.1 Testicular hypofunction (principal); Z71.85 Encounter for immunization safety counseling
CPT/HCPCS: 84402; 84403; 86787

== ENCOUNTER → 2024-07-12 13:52 | Outpatient (CLI) | payer MEDICARE, OTHER, SELFPAY ==
[2024-07-12 19:02] LABS: Add Manual Diff / Slide Review NO; Basophils Absolute Auto 0 /uL (0-100); Basophils Percent Auto 0.4 % (0-2); Eosinophils Absolute Auto 100 /uL (0-450); Eosinophils Percent Auto 0.7 % (2-4); Hemoglobin 14.2 g/dL (13.5-17.5); Lymphocytes Absolute Auto 2200 /uL (1100-4500); Lymphocytes Percent Auto 23.8 % (25-40); Mean Corpuscular HGB Conc 33.8 % (30-36); Mean Corpuscular Hemoglobin 31.3 PG (26-34); Mean Corpuscular Volume 92.8 fL (80-100); Monocytes Absolute Auto 1000 /uL (0-900); Monocytes Percent Auto 10.5 % (3-14); Neutrophils Absolute Auto 6000 /uL (1500-7000); Neutrophils Percent Auto 64.6 % (50-75); Platelet Count 239 X10^3/uL (150-400); Red Blood Cell Count 4.52 X10^6/uL (4.5-5.9); Red Cell Distribution Width 13.9 % (11.6-14.8); White Blood Cell Count 9.3 X10^3/uL (4.5-11.0)
[2024-07-12 19:18] LABS: Alanine Aminotransferase 27 IU/L (<50); Albumin 4.2 g/dL (3.5-5.0); Albumin Globulin Ratio 1.6 (1.0-2.8); Alkaline Phosphatase 60 U/L (38-126); Aspartate Aminotransferase 20 IU/L (17-59); BUN Creatinine Ratio 22.3 (6-22); Bilirubin Total 0.6 mg/dL (0.2-1.3); Blood Urea Nitrogen 21 mg/dL (9-20); Calcium 9.4 mg/dL (8.4-10.2); Carbon Dioxide 28 mmol/L (22-32); Chloride 102 mmol/L (98-107); Estimated Glomerular Filt Rate > 60 mL/min (>60); Globulin 2.6 g/dL (1.7-4.1); Glucose 98 mg/dL (70-99); HEMOLYSIS < 15 (0-50); Lactate Dehydrogenase 201 U/L (120-246); Potassium 4.6 mmol/L (3.4-5.1); Sodium 135 mmol/L (137-145); Total Protein 6.8 g/dL (6.3-8.2)
== END ==
PROVIDERS: PCP Family Medicine; Visit Provider Internal Medicine Hematology & Oncology
DX: D72.820 Lymphocytosis (symptomatic) (principal)
CPT/HCPCS: 80053; 82232; 83615; 85025

== ENCOUNTER → 2024-11-19 13:56 | Outpatient (CLI) | payer MEDICARE, OTHER, SELFPAY ==
[2024-11-19 19:51] LABS: Prostate Specific Antigen 1.73 ng/mL (0.10-4.00)
== END ==
PROVIDERS: PCP Family Medicine; Visit Provider Urology
DX: N40.1 Benign prostatic hyperplasia with lower urinary tract symptoms (principal); N13.8 Other obstructive and reflux uropathy
CPT/HCPCS: 84153